=== PATIENT | female | born 2000 | race Caucasian/White ===

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

== ENCOUNTER 2018-07-05 15:47 | Emergency (ER) | payer BC, OTHER ==
--- OUTSIDE RECORDS SUMMARY | 2018-07-05 15:54 | XMS REPORT ---
:2000 External Reference #:[id number] Author Organization [facility] Address [address] [place] [id number] Phone [phone] Care Team Providers Name Role Phone Eddi Koenig M.D. Primary Care Physician Unavailable Payers Type Date Identification Payment Provider Subscriber Numbers Health Maintenance Effective: Policy Number: [facility] [employer] ([facility]) 11/11/2013 [id number] [place] PayID: [id number] [address] [place] [address] Problems Date Description Provider Status Onset: 03/22/2018 Sinai-Danlos syndrome, type 3 Eddi Koenig M.D. Active Note: Document: 03/19/18 - Consult Genetics Onset: 05/26/2014 Vocal cord dysfunction Eddi Koenig M.D. Active Onset: 05/26/2014 Dysmenorrhea Active Onset: 04/06/2015 Allergic rhinitis due to pollen Eddi Koenig M.D. Active Onset: 04/06/2015 Extrinsic asthma without status Eddi Koenig M.D. Active asthmaticus Onset: 06/07/2015 Depressive disorder Eddi Koenig M.D. Active Onset: 11/29/2015 Obsessive-compulsive disorder Eddi Koenig M.D. 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 Active Onset: 08/05/2017 Allergic rhinitis due to animal Active dander Onset: 11/19/2017 Chronic pain syndrome Eddi Koenig M.D. Active Onset: 09/13/2014 Temporomandibular joint disorder Eddi Koenig M.D. Inactive Inactive: 06/07/2015 Onset: 09/13/2014 Backache Eddi Koenig M.D. Inactive Inactive: 06/07/2015 Onset: Neuralgia/neuritis - ankle/foot Inactive Inactive: 06/07/2015 Note: right Family History Date Family Member(s) Problem(s) Comments Onset: (age 45 Years) Father Arthritis Mother Depression Mother Anxiety Mother Allergies Mother Migraine First Brother Bipolar Disorder First Brother Migraine First Brother Concussion (multiple) First Brother Attention Deficit Disorder (ADD) Paternal Grandmother Bipolar Disorder Social History Type Date Description Comments ETOH Use Denies alcohol use Smoking Patient has never smoked Recreational Drug Use Denies Drug Use Smoking No Exposure To Secondhand Smoke Currently Active Has never engaged in sexual activity Allergies, Adverse Reactions, Alerts Date Description Reaction Status Severity Comments 08/18/2014 Amoxicillin Urticaria active Mild to Moderate 08/15/2016 Naproxen syncope active Moderate Medications Medication Date Status Form Strength Qnty SIG Indications Ordering Provider Knee Brace 12/23 Active Misc 1Pair Custom with 10 degree Snedeker, hyperextension M.D. 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 and low back weakness Occupational 11/19 Active Hypermobility D89.40 Eddi Therapy syndrome Levon Koenig Ranitidine 11/19 Active Tablets 150mg 60tab Take 1 Tablet D89.40 s By Mouth Twice Snedeker, A Day M.D. Concerta 12/18 Active Tablets ER 36mg 30tab 1 cap by mouth F90.0 s daily every Snedeker, morning M.D. Venlafaxine 04/10 Active Tablets 50mg 60tab take 1 tablet F32.9 Eddi HCL s by mouth twice Snedeker, a day M.D. Flonase 04/06 Active Suspension 50mcg/Act 47.40 1 intranasal 477.0 Eddi Allergy 0ml puff daily Snedeker, Relief M.D. Epinastine 04/06 Active Solution 0.05% 5ml 1 drop both J30.1 eyes twice a Snedeker, day MDarvin Proair HFA 04/06 Active Aerosol 108(90Bas 8.500 2 puff every 4 J45.20 e) gm hours as Snedeker, mcg/Act needed M.Fidelia Aerochamber 04/06 Active Misc 1unit 1 unit 493.00 [place] s Levon Koenig Alprazolam Active Tablets 0.25mg 30tab 1 tab by mouth F32.9 Eddi s three times a Snedeker, day M.D. F42 Tramadol HCL Active Tablets 50mg Take 1 To 2 Unknown Tablets By Mouth Every 6 Hours Singulair Active Tablets 10mg take 1 tablet by Unknown mouth one time daily Gabapentin 11/19/2017 - Hx Tablets 600mg 60ta tab by mouth G89 [place] 06/22/2018 bs twice a day .4 Levon Koenig Atarax 07/14/2017 - Hx Tablets 25mg 30ta Four Times Daily Unknown 08/13/2017 bs Deltasone 07/14/2017 - Hx Tablets 20mg 9tab Every Day Unknown 07/23/2017 s Hydroxyzine HCL 07/02/2017 - Hx Tablets 25mg 30ta one to two tabs L50 Walter G. 08/01/2017 bs by mouth bid prn .0 Levon Paredes Oxycodone-Aceta 02/15/2017 - Hx Tablets 5-325mg 30ta 1-2 tab by mouth N80 Eddi minophen 07/01/2017 bs every 4 hours as .9 Snedeker, needed; do not M.D. take with acetaminophen N94.6 Concerta 09/21/2016 - Hx Tablets ER 27mg 30tabs 1 tab by mouth F90.0 Eddi 12/18/2016 daily every Snedeker, morning M.D. Concerta 08/15/2016 - Hx Tablets ER 18mg 30tabs 1 tab by mouth F90.0 Bc 09/21/2016 daily every Alcazar, morning M.D. Oxycodone-Aceta 04/18/2016 - Hx Tablets 5-325m 30tabs 1-2 tab by R10.9 Eddi minophen 05/18/2016 g mouth every 4 Snedeker, hours as M.DCarlos Enrique needed; do not take with acetaminophen Venlafaxine HCL 02/22/2016 - Hx Tablets 37.5mg 60tabs 1 tab by mouth F32.9 [place] 04/10/2016 twice a day Levon Koenig Physical 02/22/2016 - Hx Evaluate and F32.9 [place] Therapy 02/27/2016 treat low back Snedcarlor, pain Marine.DCarlos Enrique Lexapro 01/09/2016 - Hx Tablets 10mg 45tabs 1 1/2 tab by F32.9 [place] 02/22/2016 mouth daily Levon Koenig Valacyclovir 12/26/2015 - Hx Tablets 500mg 10tabs 1 tab by mouth G51.0 [place] HCL 12/31/2015 twice a day Levon Koenig Prednisone 12/26/2015 - Hx Tablets 10mg 50tabs 3 tab by mouth G51.0 [place] 01/09/2016 twice a day for Snedeker, 5 days, then 2 M.D. bid for 2 days, then 1 bid for 2 days, then 1/2 bid for 2 days Lexapro 12/21/2015 - Hx Tablets 5mg 60tabs 1 tab by mouth F42 [place] 01/09/2016 daily SnLevno cox Sertraline HCL 11/29/2015 - Hx Tablets 25mg 90tabs 1 tab by mouth F42 [place] 12/21/2015 daily Levon Koenig Drysol 11/12/2015 - Hx Solution 20% 35ml Apply as R61 [place] 01/02/2016 directed Tafa Snedella, daily for 1 M.D. week then as needed to control sweating Cefdinir 10/17/2015 - Hx Capsules 300mg 20caps 1 cap by mouth J01.10 [place] 11/11/2015 twice a day Levon Koenig Fluoxetine HCL 04/11/2015 - Hx Tablets 20mg 30tabs Take 1 Tablet [place] 01/31/2016 By Mouth Every Snedeker, Day M.Fidelia Crutches-Alumin 12/21/2014 - Hx Mis 1units 845.19 Eddi um 04/05/2015 Levon Koenig Post-Op 12/10/2014 - Hx Misc 1units one right 719.47 Eddi Shoe/Soft 04/05/2015 post-op shoe, Sncesarekeyancy, TOP/Women/Mediu wear as M.D. m directed Fluoxetine HCL 08/27/2014 - Hx Capsules 20mg 30caps 1 cap by mouth Eddi 04/11/2015 every day Levon Koenig Klonopin 08/18/2014 - Hx Tablets 0.5mg 30tabs Take 1 tablet 300.00 Angela 08/23/2014 by mouth 2 Uphoff, times per day M.D. for panic disorder Emla 08/18/2014 - Hx Cream 2.5-2. 5gm Apply as 300.00 Angela 04/05/2015 5% directed 30 Uphoff, minutes prior M.D. to venipuncture Divalproex 08/06/2014 - Hx Tablets DR 250mg 60tabs 1 tab by mouth Eddi Sodium 04/05/2015 twice a day Levon Koenig Daysee 05/26/2014 - Hx Tablets 0.15-0 28tabs 1 tab by mouth [place] 04/05/2015 .03&0. every day Liberty 01mg M.DCarlos Enrique Fluoxetine HCL 04/09/2014 - Hx Capsules 10mg 2 tab by mouth Unknown 08/27/2014 every day Fexofenadine 03/30/2014 - Hx Tablets 180mg Every Day Unknown HCL 04/06/2015 Clonidine HCL - Hx Tablets 0.1mg 30tabs 1 tab by mouth Unknown 10/17/2015 daily at bedtime Loratadine-Pseu - Hx Tablets ER 10-240 477.0 Unknown doephedrine ER 11/11/2015 24HR mg Camrese - Hx Tablets 0.15-0 Take 1 Tablet Unknown 06/06/2015 .03&0. By Mouth Every 01mg Day Doxycycline - Hx Capsules 100mg Take 2 Capsules Unknown Hyclate 06/06/2015 By Mouth Every Day Gabapentin - Hx Capsules 300mg Unknown 06/06/2015 Divalproex - Hx Tablets DR 250mg Take 1 Tablet Unknown Sodium 06/06/2015 By Mouth Twice A Day Ocella - Hx Tablets 3-0.03 Unknown 06/06/2015 mg Latuda - Hx Tablets 20mg Take 1 Tablet Unknown 06/06/2015 By Mouth For One Week Then Take 2 Tablets By Mouth Every Fluconazole - Hx Tablets 150mg Unknown 06/06/2015 Hydroxyzine - Hx Capsules 25mg Unknown Pamoate 06/06/2015 Clonazepam - Hx Tablets 0.5mg Take 1 Tablet Unknown 06/06/2015 By Mouth Twice A Day For Panic Disorder Divalproex - Hx Tablets ER 250mg Take 1 Tablet Unknown Sodium ER 06/06/2015 24HR By Mouth Twice A Day Motrin Ib - Hx Tablets 200mg 3 tabs at 8:30 Unknown 03/05/2016 am today Baclofen - Hx Tablets 5mg 1 tab bid Unknown 02/14/2017 Norethindrone - Hx Tablets 10mg 1 by mouth Unknown 04/07/2017 every day Tizanidine HCL - Hx Capsules 4mg 1 tab tid N80.9 Unknown 06/07/2017 Gabapentin - Hx Capsules 200mg 1 capsule tid Unknown 07/01/2017 Celecoxib - Hx Capsules 200mg 1 capsule tid Reta 07/01/2017 Allen GARDUNO Sulfamethoxazol - Hx Tablets 800-16 1 tab bid x 3 Reta e/Trimethoprim 08/22/2017 0mg days Allen GARDUNO DS Medications Administered in Office Medication Date Status Form Strength Qnty SIG Indications Ordering Provider Immunization 04/10/ Administered Injection Eddi Adminstration 2+ 2015 Jb Koenig Or Levon Combination Immunization 04/10/ Administered Injection Eddi Administration 2015 Jb Koenig Or Levon Combination TB Intradermal 04/10/ Administered Injection Eddi Test 2015 Levon Koenig Immunization 08/12/ Administered Injection Eddi Administration 2014 Jb Koenig Or M.D. Combination Immunization Injection Eddi Administration 2014 Jb Koenig Or Levon Combination Immunizations CPT Code Status Date Vaccine Lot # [id number] Given 04/10/2016 Meningococcal Conjugate Vaccine (Menveo) [id number] 95868 Given 04/10/2016 Meningococcal B Vaccine [id number] 15222 Given 08/12/2015 Flumist [id number] 96833 Given 09/13/2014 Flumist [id number] 59161 Given 08/26/2013 Influenza Virus Vaccine, Split Virus, 6-35 Months Age Intramuscul 41450 Given 09/17/2012 Influenza Virus Vaccine, Split Virus, 6-35 Months Age Intramuscul 04814 Given 04/03/2012 Hepatitis A Pediatric 22280 Given 02/22/2012 Gardasil 18524 Given 09/27/2011 Influenza Virus Vaccine Intranasal 37528 Given 09/07/2011 Gardasil 42549 Given 07/09/2011 Gardasil 37910 Given 07/09/2011 Varicella (Chicken Pox) Vaccine 65848 Given 07/09/2011 Hepatitis A Pediatric 81560 Given 09/15/2010 Influenza Virus Vaccine Intranasal 77331 Given 03/29/2010 Menactra 51641 Given 03/29/2010 Tdap 55378 Given 09/28/2009 Influenza Virus Vaccine, Split Virus, 6-35 Months Age Intramuscul 84704 Given 09/28/2009 Influenza Virus Vaccine, Pandemic Formulation, Live, Intranasal 87436 Given 09/09/2008 Influenza Virus Vaccine Intranasal 78782 Given 10/07/2006 Influenza Virus Vaccine, Split Virus, 6-35 Months Age Intramuscul 20907 Given 05/26/2004 Varicella (Chicken Pox) Vaccine 46852 Given 05/26/2004 Polio Injectable 37105 Given 05/26/2004 MMR Vaccine, Live, For Subcutaneous Use 17688 Given 05/26/2004 DTaP Vaccine Younger Than 7 84158 Given 01/13/2002 Prevnar 13 17626 Given 03/27/2000 MMR Vaccine, Live, For Subcutaneous Use 27319 Given 03/27/2000 DTaP Vaccine Younger Than 7 93081 Given 12/27/1999 Polio Injectable 97540 Given 12/27/1999 Hib Vaccine 73840 Given 09/19/1999 Hepatitis B Vaccine Pediatric/Adolescent 22212 Given 06/07/1999 DTaP Vaccine Younger Than 7 60029 Given 06/07/1999 Hib Vaccine 73261 Given 04/05/1999 Polio Injectable 52241 Given 04/05/1999 DTaP Vaccine Younger Than 7 79548 Given 04/05/1999 Rotateq 87845 Given 04/05/1999 Hib Vaccine 21708 Given 02/03/1999 Hepatitis B Vaccine Pediatric/Adolescent 90674 Given 02/03/1999 Polio Injectable 44683 Given 02/03/1999 DTaP Vaccine Younger Than 7 60266 Given 02/03/1999 Rotateq 52280 Given 02/03/1999 Hib Vaccine 17851 Given 1998 Hepatitis B Vaccine Pediatric/Adolescent 46475 Refused 09/21/2016 Meningococcal B Vaccine Vital Signs Date Vital Result Comment 06/23/2018 Body Temperature 98.4 F Heart Rate 90 /min Respiratory Rate 12 /min BP Systolic 123 mmHg BP Diastolic 83 mmHg Weight 140.25 lb weighed with braces total 6 lbs Weight in kg's 63.617 Height 64 inches 5'4" BMI (Body Mass Index) 24.1 kg/m2 Body Mass Index Percentile 73 % Height Percentile 45 % Weight Percentile 70th 11/22/2017 Body Temperature 99.1 F Heart Rate 91 /min Respiratory Rate 14 /min BP Systolic 119 mmHg BP Diastolic 74 mmHg Weight 140.00 lb Weight in kg's 63.503 Height 64 inches BMI (Body Mass Index) 24.0 kg/m2 O2 % BldC Oximetry 99 % 11/19/2017 Body Temperature 98.4 F Heart Rate 105 /min Respiratory Rate 12 /min BP Systolic 117 mmHg BP Diastolic 75 mmHg Blood Pressure Percentile 0 % Weight 134.38 lb Weight in kg's 60.953 Height 64.25 inches 5'4.25" BMI (Body Mass Index) 22.9 kg/m2 Body Mass Index Percentile 65 % Height Percentile 50 % Weight Percentile 64th 08/20/2017 Body Temperature 99.1 F Heart Rate 104 /min Respiratory Rate 16 /min BP Systolic 132 mmHg BP Diastolic 78 mmHg Blood Pressure Percentile 97 % Weight 135.50 lb Weight in kg's 61.463 Height 64.25 inches 5'4.25" BMI (Body Mass Index) 23.1 kg/m2 Body Mass Index Percentile 67 % Height Percentile 50 % Weight Percentile 67th 07/14/2017 Body Temperature 99.2 F Heart Rate 106 /min Respiratory Rate 18 /min BP Systolic 132 mmHg BP Diastolic 80 mmHg Weight 135.00 lb Weight in kg's 61.235 Height 64 inches BMI (Body Mass Index) 23.1 kg/m2 O2 % BldC Oximetry 100 % 07/02/2017 Body Temperature 98.3 F Heart Rate 84 /min Respiratory Rate 12 /min BP Systolic 138 mmHg BP Diastolic 91 mmHg BP Systolic Recheck 140 mmHg BP Diastolic Recheck 82 mmHg Blood Pressure Percentile 0 % Weight 135.19 lb Weight in kg's 61.321 Weight Percentile 67th 06/07/2017 Body Temperature 99.0 F Heart Rate 80 /min Respiratory Rate 14 /min BP Systolic 128 mmHg BP Diastolic 77 mmHg Blood Pressure Percentile 94 % Weight 135.00 lb Weight in kg's 61.236 Height 64.4 inches 5'4.40" BMI (Body Mass Index) 22.9 kg/m2 Body Mass Index Percentile 66 % Height Percentile 52 % Weight Percentile 6702/15/2017 Body Temperature 98.8 F Heart Rate 98 /min Respiratory Rate 12 /min BP Systolic 117 mmHg BP Diastolic 73 mmHg Blood Pressure Percentile 70 % Weight 134.88 lb Weight in kg's 61.179 Height 64.25 inches 5'4.25" BMI (Body Mass Index) 23.0 kg/m2 Body Mass Index Percentile 68 % Height Percentile 50 % Weight Percentile 6812/18/2016 Body Temperature 99.6 F Heart Rate 91 /min Respiratory Rate 14 /min BP Systolic 128 mmHg BP Diastolic 78 mmHg Blood Pressure Percentile 94 % Weight 136.56 lb Weight in kg's 61.945 Height 64.2 inches 5'4.20" BMI (Body Mass Index) 23.3 kg/m2 Body Mass Index Percentile 71 % Height Percentile 50 % Weight Percentile 7109/21/2016 Body Temperature 98.2 F Heart Rate 76 /min Respiratory Rate 16 /min BP Systolic 118 mmHg BP Diastolic 62 mmHg Blood Pressure Percentile 72 % Weight 137.00 lb Weight in kg's 62.143 Height 64.50 inches 5'4.50" BMI (Body Mass Index) 23.2 kg/m2 Body Mass Index Percentile 71 % Height Percentile 55 % Weight Percentile 72nd 08/15/2016 Body Temperature 98.6 F Heart Rate 92 /min Respiratory Rate 12 /min BP Systolic 124 mmHg BP Diastolic 78 mmHg Blood Pressure Percentile 87 % Weight 136.88 lb Weight in kg's 62.087 Height 64.5 inches 5'4.50" BMI (Body Mass Index) 23.1 kg/m2 Body Mass Index Percentile 71 % Height Percentile 55 % Weight Percentile 05/18/2016 Body Temperature 98.3 F Heart Rate 79 /min Respiratory Rate 12 /min BP Systolic 116 mmHg BP Diastolic 73 mmHg Blood Pressure Percentile 0 % Weight 133.56 lb Weight in kg's 60.584 Height 64.5 inches 5'4.50" BMI (Body Mass Index) 22.6 kg/m2 Body Mass Index Percentile 67 % Height Percentile 55 % Weight Percentile 04/25/2016 Body Temperature 98.4 F Heart Rate 71 /min Respiratory Rate 12 /min BP Systolic 102 mmHg BP Diastolic 68 mmHg Blood Pressure Percentile 16 % Weight 132.56 lb Weight in kg's 60.130 Height 64.5 inches 5'4.50" BMI (Body Mass Index) 22.4 kg/m2 Body Mass Index Percentile 66 % Height Percentile 55 % Weight Percentile 04/18/2016 Body Temperature 99.0 F Heart Rate 76 /min Respiratory Rate 12 /min BP Systolic 118 mmHg BP Diastolic 62 mmHg Blood Pressure Percentile 0 % Weight 133.25 lb Weight in kg's 60.442 Weight Percentile 04/10/2016 Body Temperature 98.4 F Heart Rate 85 /min Respiratory Rate 12 /min BP Systolic 115 mmHg BP Diastolic 80 mmHg Blood Pressure Percentile 0 % Weight 131.25 lb Weight in kg's 59.535 Height 64.5 inches 5'4.50" BMI (Body Mass Index) 22.2 kg/m2 Body Mass Index Percentile 64 % Height Percentile 55 % Weight Percentile 03/06/2016 Body Temperature 99.5 F Heart Rate 82 /min Respiratory Rate 18 /min BP Systolic 108 mmHg BP Diastolic 64 mmHg Blood Pressure Percentile 34 % Weight 132.38 lb Weight in kg's 60.045 Height 64.5 inches 5'4.50" BMI (Body Mass Index) 22.4 kg/m2 Body Mass Index Percentile 66 % Height Percentile 55 % Weight Percentile 03/02/2016 Body Temperature 99.5 F Heart Rate 90 /min Respiratory Rate 12 /min BP Systolic 105 mmHg BP Diastolic 73 mmHg Blood Pressure Percentile 25 % Weight 128.56 lb Weight in kg's 58.316 Height 64.5 inches 5'4.50" done 2x BMI (Body Mass Index) 21.7 kg/m2 Body Mass Index Percentile 59 % Height Percentile 55 % Weight Percentile 62nd 02/22/2016 Body Temperature 98.4 F Heart Rate 73 /min Respiratory Rate 12 /min BP Systolic 104 mmHg BP Diastolic 65 mmHg Blood Pressure Percentile 22 % Weight 130.06 lb Weight in kg's 58.996 Height 64.5 inches 5'4.50" done 2x BMI (Body Mass Index) 22.0 kg/m2 Body Mass Index Percentile 62 % Height Percentile 55 % Weight Percentile 65th 01/31/2016 Body Temperature 98.1 F Heart Rate 72 /min Respiratory Rate 12 /min BP Systolic 112 mmHg BP Diastolic 60 mmHg Blood Pressure Percentile 50 % Weight 128.00 lb Weight in kg's 58.061 Height 64.25 inches 5'4.25" done 2x BMI (Body Mass Index) 21.8 kg/m2 Body Mass Index Percentile 60 % Height Percentile 52 % Weight Percentile 62nd 01/03/2016 Body Temperature 98.3 F Heart Rate 86 /min Respiratory Rate 12 /min BP Systolic 112 mmHg BP Diastolic 74 mmHg Blood Pressure Percentile 49 % Weight 124.25 lb Weight in kg's 56.360 Height 64.5 inches 5'4.50" BMI (Body Mass Index) 21.0 kg/m2 Body Mass Index Percentile 51 % Height Percentile 56 % Weight Percentile 55th 12/26/2015 Body Temperature 98.2 F Heart Rate 64 /min Respiratory Rate 14 /min BP Systolic 108 mmHg BP Diastolic 64 mmHg Blood Pressure Percentile 0 % Weight 120.50 lb Weight in kg's 54.659 Weight Percentile 48th 12/21/2015 Body Temperature 98.6 F Heart Rate 66 /min Respiratory Rate 14 /min BP Systolic 95 mmHg BP Diastolic 64 mmHg Blood Pressure Percentile 5 % Weight 121.38 lb Weight in kg's 55.056 Height 64.4 inches 5'4.40" BMI (Body Mass Index) 20.6 kg/m2 Body Mass Index Percentile 46 % Height Percentile 54 % Weight Percentile 50th 11/29/2015 Body Temperature 98.2 F Heart Rate 83 /min Respiratory Rate 12 /min BP Systolic 124 mmHg BP Diastolic 76 mmHg Blood Pressure Percentile 87 % Weight 121.50 lb Weight in kg's 55.112 Height 64.25 inches 5'4.25" BMI (Body Mass Index) 20.7 kg/m2 Body Mass Index Percentile 48 % Height Percentile 52 % Weight Percentile 50th 11/12/2015 Body Temperature 98.6 F Heart Rate 88 /min Respiratory Rate 16 /min BP Systolic 108 mmHg BP Diastolic 64 mmHg Blood Pressure Percentile 0 % Weight 120.50 lb Weight in kg's 54.659 Weight Percentile 48th 10/17/2015 Body Temperature 98.5 F Heart Rate 112 /min Respiratory Rate 20 /min BP Systolic 110 mmHg BP Diastolic 62 mmHg Blood Pressure Percentile 0 % Weight 118.00 lb Weight in kg's 53.525 Weight Percentile 44th 10/02/2015 Body Temperature 98.6 F Heart Rate 84 /min Respiratory Rate 16 /min BP Systolic 115 mmHg BP Diastolic 69 mmHg Weight 122.00 lb Weight in kg's 55.338 O2 % BldC Oximetry 99 % 08/12/2015 Body Temperature 98.0 F Heart Rate 87 /min Respiratory Rate 12 /min BP Systolic 111 mmHg BP Diastolic 76 mmHg Blood Pressure Percentile 0 % Weight 126.88 lb Weight in kg's 57.550 Height 63.75 inches 5'3.75" BMI (Body Mass Index) 21.9 kg/m2 Body Mass Index Percentile 64 % Height Percentile 45 % Weight Percentile 62nd 06/07/2015 Body Temperature 99.0 F Heart Rate 78 /min Respiratory Rate 12 /min BP Systolic 106 mmHg BP Diastolic 74 mmHg Blood Pressure Percentile 30 % Weight 124.69 lb Weight in kg's 56.558 Height 63.75 inches 5'3.75" BMI (Body Mass Index) 21.6 kg/m2 Body Mass Index Percentile 61 % Height Percentile 45 % Weight Percentile 59th 06/06/2015 Body Temperature 98.9 F Heart Rate 64 /min Respiratory Rate 20 /min BP Systolic 118 mmHg BP Diastolic 60 mmHg Blood Pressure Percentile 0 % Weight 123.25 lb Weight in kg's 55.906 Weight Percentile 56th 05/16/2015 Body Temperature 98.8 F Heart Rate 68 /min Respiratory Rate 16 /min BP Systolic 104 mmHg BP Diastolic 68 mmHg Blood Pressure Percentile 0 % Weight 124.50 lb Weight in kg's 56.473 Weight Percentile 59th 04/06/2015 Body Temperature 98.2 F Heart Rate 66 /min Respiratory Rate 12 /min BP Systolic 103 mmHg BP Diastolic 69 mmHg Blood Pressure Percentile 20 % Weight 123.75 lb Weight in kg's 56.133 Height 64.25 inches 5'4.25" BMI (Body Mass Index) 21.1 kg/m2 Body Mass Index Percentile 56 % Height Percentile 53 % Weight Percentile 58th 12/21/2014 Body Temperature 97.4 F Heart Rate 80 /min Respiratory Rate 12 /min BP Systolic 118 mmHg BP Diastolic 62 mmHg Blood Pressure Percentile 0 % Weight 125.25 lb Weight in kg's 56.813 Height 63.1 inches 5'3.10" BMI (Body Mass Index) 22.1 kg/m2 Body Mass Index Percentile 69 % Height Percentile 36 % Weight Percentile 62nd 12/10/2014 Body Temperature 99.0 F Heart Rate 80 /min Respiratory Rate 14 /min BP Systolic 104 mmHg BP Diastolic 68 mmHg Blood Pressure Percentile 26 % Weight 124.25 lb Weight in kg's 56.360 Height 63.1 inches 5'3.10" BMI (Body Mass Index) 21.9 kg/m2 Body Mass Index Percentile 67 % Height Percentile 36 % Weight Percentile 60th 12/02/2014 Body Temperature 98.8 F Heart Rate 86 /min Respiratory Rate 12 /min BP Systolic 123 mmHg BP Diastolic 67 mmHg Blood Pressure Percentile 0 % Weight 124.25 lb Weight in kg's 56.360 Weight Percentile 60th 11/18/2014 Body Temperature 98.0 F Heart Rate 90 /min Respiratory Rate 14 /min BP Systolic 123 mmHg BP Diastolic 74 mmHg Blood Pressure Percentile 0 % Weight 128.25 lb Weight in kg's 58.174 O2 % BldC Oximetry 99 % Weight Percentile 67th 09/13/2014 Body Temperature 98.7 F Heart Rate 64 /min Respiratory Rate 18 /min BP Systolic 112 mmHg BP Diastolic 68 mmHg Blood Pressure Percentile 52 % Weight 131.25 lb Weight in kg's 59.535 Height 63.9 inches 5'3.90" BMI (Body Mass Index) 22.6 kg/m2 Body Mass Index Percentile 74 % Height Percentile 49 % Weight Percentile 72nd 08/23/2014 Body Temperature 98.9 F Heart Rate 60 /min Respiratory Rate 18 /min BP Systolic 110 mmHg BP Diastolic 70 mmHg Blood Pressure Percentile 46 % Weight 129.38 lb Weight in kg's 58.684 Height 63.6 inches 5'3.60" BMI (Body Mass Index) 22.5 kg/m2 Body Mass Index Percentile 73 % Height Percentile 45 % Weight Percentile 70th 08/20/2014 Body Temperature 98.3 F Heart Rate 62 /min Respiratory Rate 16 /min BP Systolic 106 mmHg supine. BP Diastolic 60 mmHg supine. Blood Pressure Percentile 0 % Weight 129.38 lb Weight in kg's 58.684 Weight Percentile 70th 08/18/2014 Body Temperature 99.8 F Heart Rate 86 /min Respiratory Rate 12 /min BP Systolic 116 mmHg BP Diastolic 70 mmHg Blood Pressure Percentile 0 % Weight 128.38 lb Weight in kg's 58.231 Weight Percentile 68th 05/26/2014 Heart Rate 66 /min Respiratory Rate 14 /min BP Systolic 118 mmHg BP Diastolic 74 mmHg Weight 123.00 lb Height 63.5 inches 04/09/2014 Heart Rate 83 /min Respiratory Rate 12 /min BP Systolic 119 mmHg BP Diastolic 74 mmHg Weight 118.81 lb 03/30/2014 Heart Rate 83 /min Respiratory Rate 14 /min BP Systolic 113 mmHg BP Diastolic 69 mmHg Weight 119.00 lb 03/23/2014 Heart Rate 80 /min Respiratory Rate 14 /min BP Systolic 108 mmHg BP Diastolic 66 mmHg Weight 116.00 lb 03/16/2014 Heart Rate 76 /min Respiratory Rate 12 /min BP Systolic 103 mmHg BP Diastolic 63 mmHg Weight 116.81 lb 03/11/2014 Body Temperature 99.6 F Heart Rate 80 /min Respiratory Rate 16 /min BP Systolic 100 mmHg BP Diastolic 62 mmHg Weight 117.00 lb 02/16/2014 Heart Rate 80 /min Respiratory Rate 12 /min BP Systolic 113 mmHg BP Diastolic 74 mmHg Weight 117.81 lb 01/11/2014 Heart Rate 69 /min Respiratory Rate 12 /min BP Systolic 110 mmHg BP Diastolic 74 mmHg Weight 113.50 lb 04/16/2013 Heart Rate 68 /min Respiratory Rate 18 /min BP Systolic 110 mmHg BP Diastolic 70 mmHg Weight 109.75 lb Height 62.9 inches 04/03/2012 Heart Rate 84 /min Respiratory Rate 18 /min BP Systolic 110 mmHg BP Diastolic 64 mmHg Weight 102.81 lb Height 61.8 inches 03/02/2011 Heart Rate 71 /min Respiratory Rate 12 /min BP Systolic 105 mmHg BP Diastolic 73 mmHg Weight 85.38 lb Height 59 inches 02/16/2011 Heart Rate 84 /min Respiratory Rate 12 /min BP Systolic 110 mmHg BP Diastolic 80 mmHg Weight 85.31 lb 06/05/2010 Heart Rate 70 /min Respiratory Rate 12 /min BP Systolic 98 mmHg BP Diastolic 78 mmHg Weight 76.75 lb 03/01/2010 Heart Rate 84 /min Respiratory Rate 16 /min BP Systolic 116 mmHg BP Diastolic 60 mmHg Weight 74.50 lb Height 56 inches 09/16/2009 Heart Rate 108 /min Respiratory Rate 18 /min BP Systolic 100 mmHg BP Diastolic 68 mmHg Weight 69.25 lb 01/26/2009 Heart Rate 92 /min Respiratory Rate 18 /min BP Systolic 96 mmHg BP Diastolic 62 mmHg Weight 67.00 lb Height 53.75 inches 12/20/2008 Heart Rate 72 /min Respiratory Rate 16 /min BP Systolic 86 mmHg BP Diastolic 60 mmHg Weight 64.75 lb 11/03/2008 Heart Rate 66 /min Respiratory Rate 18 /min BP Systolic 98 mmHg BP Diastolic 70 mmHg Weight 65.00 lb 10/18/2008 Heart Rate 64 /min Respiratory Rate 12 /min BP Systolic 92 mmHg BP Diastolic 58 mmHg Weight 65.00 lb 10/14/2008 Heart Rate 80 /min Respiratory Rate 20 /min BP Systolic 90 mmHg BP Diastolic 60 mmHg Weight 65.50 lb 09/24/2008 Weight 65.50 lb 08/27/2008 Heart Rate 80 /min Respiratory Rate 16 /min BP Systolic 116 mmHg BP Diastolic 64 mmHg Weight 64.25 lb 12/03/2007 Heart Rate 100 /min Respiratory Rate 20 /min BP Systolic 82 mmHg BP Diastolic 64 mmHg Weight 59.00 lb Height 52 inches 11/24/2007 Heart Rate 84 /min Respiratory Rate 16 /min BP Systolic 86 mmHg BP Diastolic 52 mmHg Weight 60.00 lb 10/27/2007 Heart Rate 84 /min Respiratory Rate 20 /min BP Systolic 90 mmHg BP Diastolic 52 mmHg Weight 59.00 lb 02/05/2007 Heart Rate 82 /min Respiratory Rate 18 /min BP Systolic 100 mmHg BP Diastolic 56 mmHg Weight 53.00 lb 12/10/2006 Heart Rate 80 /min Respiratory Rate 20 /min BP Systolic 92 mmHg BP Diastolic 62 mmHg Weight 51.00 lb 12/02/2006 Heart Rate 84 /min Respiratory Rate 16 /min BP Systolic 96 mmHg BP Diastolic 60 mmHg Weight 52.25 lb Height 49 inches Results Test Date Test Result H/L Range Note Laboratory test finding 11/21/2017 Tryptase 2.9 ng/mL <11.5 1 Laboratory test finding 04/10/2016 PPD Intermediate negative Laboratory test finding 03/02/2016 .Quick Strep Screen neg .Culture Throat neg Herpes Simplex PCR 12/26/2015 Herpes Source ORAL HSV 1 PCR Negative Negative HSV 2 PCR Negative Negative 2 CBC Auto Diff 11/09/2015 White Blood Count 5.1 10^3/uL 3.5-10.8 Red Blood Count 4.86 10^6/uL 4.0-5.4 Hemoglobin 13.9 g/dL 12.0-16.0 Hematocrit 41 % 35-47 Mean Corpuscular Volume 85 fL 80-97 Mean Corpuscular Hemoglobin 29 pg 27-31 Mean Corpuscular HGB Conc 34 g/dL 31-36 Red Cell Distribution Width 12 % 10.5-15 Platelet Count 234 10^3/uL 150-450 Mean Platelet Volume 9 um3 7.4-10.4 Abs Neutrophils 2.5 10^3/uL 1.5-7.7 Abs Lymphocytes 2.1 10^3/uL 1.0-4.8 Abs Monocytes 0.4 10^3/uL 0-0.8 Abs Eosinophils 0 10^3/uL 0-0.6 Abs Basophils 0.1 10^3/uL 0-0.2 Abs Nucleated RBC 0 10^3/uL Granulocyte % 49.1 % 38-83 Lymphocyte % 40.8 % 25-47 Monocyte % 7.3 % 1-9 Eosinophil % 0.9 % 0-6 Basophil % 1.9 % 0-2 Nucleated Red Blood Cells % 0.1 Comp Metabolic Panel 11/09/2015 Sodium 137 mmol/L 133-145 Potassium 4.2 mmol/L 3.5-5.0 Chloride 102 mmol/L 101-111 Co2 Carbon Dioxide 25 mmol/L 22-32 Anion Gap 10 mmol/L 2-11 Glucose 90 mg/dL 70-100 Blood Urea Nitrogen 9 mg/dL 6-24 Creatinine 0.60 mg/dL 0.51-0.95 BUN/Creatinine Ratio 15.0 8-20 Calcium 9.8 mg/dL 8.6-10.3 Total Protein 7.0 g/dL 6.4-8.9 Albumin 4.6 g/dL 3.2-5.2 Globulin 2.4 g/dL 2-4 Albumin/Globulin Ratio 1.9 1-3 Total Bilirubin 0.60 mg/dL 0.2-1.0 Alkaline Phosphatase 91 U/L 34-104 Alt 29 U/L 7-52 Ast 25 U/L 13-39 Laboratory test finding 11/09/2015 Ceruloplasmin 19.8 mg/dL 3 Copper 0.96 g/mL 0.75-1.45 4 Laboratory test finding 10/02/2015 Rapid Strep Molecular Negative Negative 5 Throat Beta Strep Culture SEE RESULT BELOW 6 Laboratory test finding 10/02/2015 Rapid Strep A SEE RESULT BELOW 7 .Cholesterol Screening 06/07/2015 Cholesterol Total Mass/Vol 138 HDL Cholesterol Mass/Vol 47 Triglycerides Ser/Plas Mass/VL 137 LDL Cholesterol Mass/Vol 63 Non-HDL Cholesterol QN Ser/PLS 91 LDL/HDL Ratio 1.4 .CBC W/Auto Differential 06/07/2015 White Blood Count Ser Auto CNT 7.7 Absolute Lymphocytes 2.5 Absolute Monocytes 0.7 Absolute Neutrophils Auto CNT 4.6 Lymph% 32.1 [place]% Auto Count BLD 8.8 Neutrophil % 59.1 RBC Red Blood Count 4.91 Hemoglobin Blood 14.7 Hematocrit 42.5 MCV (Corpuscular Volume) 86.5 MCH (Corpuscular Hemoglobin) 29.9 MCHC (Corpuscular Hemog Conc) 34.6 RDW 12.3 Platelet Count Blood Auto CNT 230. MPV 7.9 Laboratory test finding 04/06/2015 Oximetry 98 Laboratory test finding 03/16/2014 Granulocytes # 4.2 1.5-8.0 Granulocytes (%) 55.4 38.0-83.0 Hematocrit 40.4 36.0-46.0 Hemoglobin 13.8 12.0-16.0 Lymphocytes # 2.7 1.2-5.2 Lymphocytes % 35.9 20.0-45.0 Mean Corpuscular Hemoglobin 29.7 26.0-34.0 Mean Corpuscular Hemoglobin Concent 34.2 31.0-37.0 Mean Platelet Volume 8.2 7.4-10.4 Monocytes # 0.7 0.0-0.8 Monocytes % 8.7 1.0-9.0 Platelet Count 224 x10.3/ul 150-350 Poc Mean Corpuscular Volume 87.1 78.0-102.0 Red Blood Count 4.64 3.90-5.10 Red Cell Distribution Width 12.1 10.5-15.0 White Blood Count 7.6 4.5-13.5 Laboratory test finding 04/16/2013 Granulocytes # 8.1 High 1.5-8.0 Granulocytes (%) 67.8 38.0-83.0 Hematocrit 43.4 36.0-46.0 Hemoglobin 14.5 12.0-16.0 Lymphocytes # 3.0 1.2-5.2 Lymphocytes % 25.1 20.0-45.0 Mean Corpuscular Hemoglobin 29.3 26.0-34.0 Mean Corpuscular Hemoglobin Concent 33.4 31.0-37.0 Mean Platelet Volume 7.9 7.4-10.4 Monocytes # 0.8 0.0-0.8 Monocytes % 7.1 1.0-9.0 Platelet Count 272 x10.3/ul 150-350 Poc Mean Corpuscular Volume 87.6 78.0-102.0 Red Blood Count 4.95 3.90-5.10 Red Cell Distribution Width 11.7 10.5-15.0 White Blood Count 11.9 4.5-13.5 Laboratory test finding 10/27/2007 Granulocytes # 2.6 1.5-8.0 Granulocytes (%) 36.2 20.0-40.0 Hematocrit 37.8 34.0-40.0 Hemoglobin 12.4 11.5-15.5 Lymphocytes # 4.3 1.5-7.0 Lymphocytes % 59.0 High 40.0-55.0 Mean Corpuscular Hemoglobin 27.8 25.0-31.0 Mean Corpuscular Hemoglobin Concent 32.9 31.0-37.0 Mean Platelet Volume 7.1 Low 7.4-10.4 Monocytes # 0.4 0.2-2.0 Monocytes % 4.8 0.0-13.0 Platelet Count 269. 150-350 Poc Mean Corpuscular Volume 84.5 75.0-87.0 Red Blood Count 4.48 3.80-4.90 Red Cell Distribution Width 12.1 10.5-15.0 White Blood Count 7.3 4.5-13.5 1 Test Performed by: [facility] - [address] [address] 2 ADDITIONAL INFORMATION Analyte Specific Reagent: This test was developed and its performance characteristics determined by [facility]. It has not been cleared or approved by the U.S. Food and Drug Administration. Test Performed by: [address] [address] Custom Bookbinder: Vasquez Woodson II, M.D., Ph.D. 3 REFERENCE VALUE 14.0 - 41.0 Test Performed by: [place] [address] Custom Bookbinder: Vasquez Woodson II, M.D., Ph.D. 4 Test Performed by: [place] [address] Custom Bookbinder: Vasquez Woodson II, M.D., Ph.D. 5 Associate Professor Of Music: [id number] [employer] The rubberizing mechanic and regulatory agencies both recommend that a throat culture for beta strep be performed if a Rapid Group A Strep assay yields a negative result. Therefore a culture will be automatically performed on all negative samples. 6 SEE RESULT BELOW Name: LIGIA CHING : [address]: Conchita Shin DO Acct: [id number] Unit: [id number] AGE: 14 Location: [facility] Re10/02/15 SEX: F Status: DEP ER SPEC: [id number] KEMAR: 10/02/15-9422 [facility] DR: Conchita Shin DO REQ: [id number] RECD: 10/02/151009 STATUS: ZELALEM KATHLEEN DR: Eddi Koenig MD _ SOURCE: THROAT SPDESC: ORDERED: Throat Beta Str Procedure Result Reported Site Throat Beta Strep Culture Final 10/04/15823 ML Negative For Group A Beta Streptococcus * ML - MAIN LAB ([facility]) . END OF REPORT * ML=Testing performed at Main Lab DEPARTMENT OF PATHOLOGY, [address] [place] [address] Raheem Goins M.D. Director [facility] # [id number] 7 SEE RESULT BELOW Name: LIGIA CHING : [address]: Conchita Shin DO Acct: [id number] Unit: [id number] AGE: 14 Location: [facility] Re10/02/15 SEX: F Status: REG ER SPEC: [id number] KEMAR: 10/02/15-[address]: Conchita Shin DO REQ: [id number] RECD: 10/02/15 STATUS: COMP HEVER DR: Eddi Koenig MD _ SOURCE: THROAT SPDESC: ORDERED: Strep A Request Procedure Result Verified Site Rapid Strep A Request Final 10/02/15- 1455 ML Specimen received for Rapid Strep A Molecular testing * ML - MAIN LAB ([facility]) . END OF REPORT * ML=Testing performed at Main Lab DEPARTMENT OF PATHOLOGY, [address] [place] [address] Raheem Goins M.D. Director [facility] # [id number] Procedures Date CPT Code Description Status 08/20/2017 37329 Vision Screening Completed 08/20/2017 02879 Admin Patient Focused Health Risk Assessment Instrument Completed 08/20/2017 46427 Brief Emotional/Behav Assessment W/ Scoring Doc Per Completed Standard Inst 08/20/2017 09194 Brief Emotional/Behav Assessment W/ Scoring Doc Per Completed Standard Inst 08/20/2017 26745 Hearing Screen, Pure Tone, Air Completed 08/15/2016 79516 Vision Screening Completed 08/15/2016 52026 Hearing Screen, Pure Tone, Air Completed 06/07/2015 34134 Vision Screening Completed 06/07/2015 78495 Hearing Screen, Pure Tone, Air Completed 06/07/2015 61293 Collection Of Capillary Blood Specimen Completed 09/15/2014 22971 Developmental Testing Limited Completed 09/14/2014 72992 Developmental Testing Limited Completed 08/19/2014 35826 Developmental Testing Limited Completed Encounters Type Date Location Provider CPT E/M Dx Office Visit 06/23/2018 8:[place] [address] H92.02 J34.89 Office Visit 11/19/2017 11:30a Sal Koenig M.D. 96968 G89.4 M35.7 D89.40 S60.410D Office Visit 08/20/2017 9:45a Sal Koenig M.D. 13620 Z00.01 N80.9 J30.81 F90.0 Z13.89 Z71.89 Office Visit 07/02/2017 9:00a Sal Paredes M.D. 20685 L50.0 N81.84 Office Visit 06/07/2017 3:30p Sal Koenig M.D. 82926 Z01.818 Office Visit 02/15/2017 12:00p Antoine Kae Koenig M.D. 69720 F90.0 N80.9 Office Visit 12/18/2016 2:30p Antoine Kae Koenig M.D. 69434 F90.0 H92.02 N94.6 Office Visit 09/21/2016 4:30p Antoine Kae Koenig M.D. 17475 F90.0 Office Visit 08/15/2016 11:30a [facility] Eddi Koenig M.D. 93839 Z00.129 N94.6 F32.9 F90.0 Office Visit 05/18/2016 9:00a Antoine Kae Koenig M.D. 28437 K59.00 F32.9 Office Visit 04/25/2016 8:30a [facility] ANKIT Nunez 97835 K59.00 R10.9 Office Visit 04/18/2016 5:45p Antoine Kae Koenig M.D. 93917 R10.9 Office Visit 04/10/2016 4:15p Antoine Kae Koenig M.D. 55398 F32.9 R10.9 Office Visit 03/06/2016 12:00p [facility] Eddi Koenig M.D. 05158 F32.9 H69.91 Office Visit 03/02/2016 9:45a [facility] [place] [address] J02.9 Office Visit 02/22/2016 9:30a [facility] Eddi Koenig M.D. 76238 F32.9 M54.9 Office Visit 01/31/2016 4:45p [facility] Eddi Koenig M.D. 14531 F32.9 M54.5 Office Visit 01/03/2016 4:45p Antoine Kae Koenig M.D. 98030 G51.0 F42 Office Visit 12/26/2015 4:30p [facility] Eddi Koenig M.D. 14684 G51.0 Office Visit 12/21/2015 9:[address]a [address] Eddi Koenig M.D. 74568 F42 J06.9 G52.9 Office Visit 11/29/2015 9:00a [facility] Eddi Koenig M.D. 66058 F42 Office Visit 11/12/2015 12:30p [facility] ANKIT Nunez 08424 R61 Office Visit 10/17/2015 10:45a [facility] Eddi Koneig M.D. 98025 J01.10 Office Visit 08/12/2015 9:45a [facility] Eddi Koenig M.D. 28325 R25.9 Office Visit 06/07/2015 3:00p Antoine Kae Koenig M.D. 95834 V20.2 v65.42 493.00 625.3 311 784.0 Office Visit 06/06/2015 10:30a [facility] Eddi Koenig M.D. 27489 784.0 Office Visit 05/16/2015 9:45a [facility] [address] 008.69 465.9 Office Visit 04/06/2015 10:15a [facility] Eddi Koenig M.D. 64584 786.2 477.0 493.00 296.80 Office Visit 12/21/2014 4:30p Antoine Kae Koenig M.D. 84516 845.19 Office Visit 12/10/2014 10:00a [facility] ANKIT Nunez 67067 719.47 V04.81 Office Visit 12/02/2014 9:30a [facility] [place] [address] 845.13 Office Visit 11/18/2014 12:00p Antoine Kae Paredes M.D. 80135 460 Office Visit 09/13/2014 4:00p [facility] Eddi Koenig M.D. 01646 300.00 724.5 524.60 Office Visit 08/23/2014 10:45a [facility] Eddi Koenig M.D. 69040 300.00 Office Visit 08/20/2014 8:45a [facility] [place] [address] 300.00 780.4 Office Visit 08/18/2014 1:30p [facility] Anegla Ravi M.D. 93927 300.00 Plan of Care Future Appointment(s):08/26/2018 10:30 am - [facility] - Uma Do MDH92.02 Otalgia, left earComments:Your exam today appears normal. IF pain is not improving, I would encourage that you call Dr. Rosas to get in for an appointment. I will talk to Dr. Koenig about the wheel chair request.J34.89 Other specified disorders of nose and nasal sinuses
[2018-07-05 15:56] VITALS: BP 122/75
--- NOTE | 2018-07-05 16:22 | UC ---
Ear Complaint HPI - HPI Summary HPI Summary: 17 yo female presents with LEFT ear pain for the past week. She tells me that earlier this week she was seen by her PCP for this and was told that her ear looked fine and to take zyrtec. Since that time her left ear has gotten significantly more painful and is radiating into her left jaw/throat. She has been taking tylenol with no relief. Denies fever, chills, decreased hearing, cough, SOB, headache, or dizziness. - History of Current Complaint Chief Complaint: UCEar Stated Complaint: L EAR PAIN Time Seen by Provider: 07/05/18 16:05 Hx Obtained From: Patient Hx Last Menstrual Period: pt has an IUD and states not getting a menses Severity Initially: Moderate Severity Currently: Severe Pain Intensity: 8 Pain Scale Used: 0-10 Numeric - Allergies/Home Medications Allergies/Adverse Reactions: Allergies Allergy/AdvReac Type Severity Reaction Status Date / Time acetaminophen [From Percocet] Allergy Rash Verified 07/05/18 15:58 amoxicillin Allergy Rash Verified 07/05/18 15:58 clonazepam [From Klonopin] Allergy Fatigue Verified 07/05/18 15:58 latex Allergy Rash Verified 07/05/18 15:58 naproxen Allergy Nausea Verified 07/05/18 15:58 oxycodone [From Percocet] Allergy Rash Verified 07/05/18 15:58 PMH/Surg Hx/FS Hx/Imm Hx - Additional Past Medical History Additional PMH: Chronic pain GI/ History: Gastroesophageal Reflux Psychological History: Anxiety, Depression - Surgical History Surgical History: Yes Surgery Procedure, Year, and Place: [place], endometriosis 06/11/17 in [facility] - Family History Known Family History: Positive: None Negative: Hypertension - Social History Occupation: Student Lives: Dormitory/Roommates Alcohol Use: None Substance Use Type: None Smoking Status (MU): Never Smoked Tobacco Have You Smoked in the Last Year: No - Immunization History Most Recent Influenza Vaccination: 2015 Vaccination Up to Date: Yes Review of Systems Constitutional: Negative Skin: Negative Eyes: Negative ENT: Ear Ache Respiratory: Negative Cardiovascular: Negative Neurovascular: Negative Neurological: Negative Psychological: Negative All Other Systems Reviewed And Are Negative: Yes Physical Exam - Summary Physical Exam Summary: GENERAL: NAD. WDWN. No pain distress. SKIN: No rashes, sores, lesions, or open wounds. HEENT: Head: AT/NC Eyes: EOM intact. Conjunctiva clear without inflammation or discharge. Ears: Hearing grossly normal. LEFT TM with mild erythema and bulging. Canal with moderate erythema. No canal edema or drainage. RIGHT EAR: WNL. TM intact. Nose: Nasal mucosa pink and moist. NTTP maxillary and frontal sinus. Throat: Posterior oropharynx without exudates, erythema, or tonsillar enlargement. Uvula midline. NECK: Supple. Nontender. No lymphadenopathy. CHEST: CTAB. No r/r/w. No accessory muscle use. Breathing comfortably and in no distress. CV: RRR. Without m/r/g. Pulses intact. NEURO: Alert. CN II-XII grossly intact. PSYCH: Age appropriate behavior. Triage Information Reviewed: Yes Vital Signs: Initial Vital Signs Temp 98.4 F 07/05/18 15:52 Pulse 81 07/05/18 15:52 Resp 18 07/05/18 15:52 BP 122/75 07/05/18 15:52 Pulse Ox 100 07/05/18 15:52 Vital Signs Reviewed: Yes Ear Complaint Course/Dx - Course Course Of Treatment: Left ear otitis media - Differential Dx/Diagnosis Provider Diagnoses: Left otitis media Discharge - Sign-Out/Discharge Documenting (check all that apply): Patient Departure All imaging exams completed and their final reports reviewed: No Studies - Discharge Plan Condition: Stable Disposition: HOME Prescriptions: Azithromycin TAB* [Zithromax TAB (Z-MELBA) 250 mg #6 tabs] 2 tab PO .TODAY, THEN 1 DAILY #1 melba Patient Education Materials: Ear Infection (ED) Referrals: Eddi Koenig MD [Primary Care Provider] - Additional Instructions: If you develop a fever, shortness of breath, chest pain, new or worsening symptoms - please call your PCP or go to the ED. - Billing Disposition and Condition Condition: STABLE Disposition: Home
== END 2018-07-05 16:38 | disposition home or self-care (01) ==
LOC: UCEAST 15:47
DX: H66.92 Otitis media, unspecified, left ear (principal); K21.9 Gastro-esophageal reflux disease without esophagitis
CPT/HCPCS: 99212; G0463

== ENCOUNTER 2020-01-04 23:28 | Emergency (ER) | payer BC ==
--- OUTSIDE RECORDS SUMMARY | 2020-01-04 23:38 | XMS REPORT | Continuity of Care Document ---
:1998 External Reference #:[id number] Author Name Ananda Bolton MD (transmitted by agent of provider Danay Rojas) Address [address] [place] [id number] Care Team Providers Name Role Phone Eddi Koenig MD - Pediatric Care Team Information Neurologist [phone] Infectious Diseases Melina Mckeon DO - Hospitalist Care Team Information Neurologist [phone] Problems Active Problems Provider Date Migraine without aura Nghia Preciado M.D. Onset: 11/09/2015 Social History Type Date Description Comments Sex Unknown ETOH Use Occasionally consumes alcohol Tobacco Use Start: Unknown Patient has never Not exposed to smoked second hand smoke Recreational Drug Use Denies Drug Use Tobacco Use Start: Unknown Patient has never smoked Smoking Status Reviewed: 12/03/19 Patient has never smoked Exercise Type/Frequency Exercises regularly walking the dog Allergies, Adverse Reactions, Alerts Active Allergies Reaction Severity Comments Date Amoxicillin 12/24/2014 Fludrocortisone Acetate Hives, Migraine, High Severe 07/31/2019 fever, High b/p Klonopin 12/24/2014 Midodrine Hives, High fever, Moderate 07/31/2019 High B/P Naproxen Syncope 09/16/2018 Amoxicillin Hives Moderate 07/31/2019 NSAIDS 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 mcg/Act Aerosol needed Rizatriptan Benzoate 1 by mouth twice 10tabs G43.009 Nghia ThaoCarlos Enrique 11/09/2015 10mg a day as needed Levon Preciado Tablets headache max 2 days a week Zyrtec 10MG 1 tablet twice a Unknown day Cyclobenzaprine HCL Dibartolo, 10mg Bette Rich, BIOMEDICAL MANAGER Tablets Albuterol Sulfate HFA Inhale 2 Puffs By Unknown Mouth Every 4 108(90Base) mcg/Act Hours as Needed Aerosol Atenolol Take 1/2 Tab By Unknown 25mg Tablets Mouth Every Day In The Morning For 3 Days Then 1 Tab In The Morning Montelukast Sodium Unknown 10mg Tablets Melodetta 24 Fe Take 1 Tablet By Unknown Mouth Daily. Skip 1-20mg-mcg(24) Placebo Pills And Chewtabs Continue Directly To The Next Pack. Tylenol 2 tablets every 4 Unknown 325mg Capsules hours as needed for pain Tramadol HCL 1 by mouth twice 60tabs Melina Mckeon, 50mg Tablets a day as needed DO for pain Alprazolam one by mouth up Unknown 0.25mg Tablets to three times daily as needed for anxiety Epinastine HCL 1 drop both eyes Unknown 0.05% twice daily Solution Flonase Allergy Relief spray 1 spray in Unknown each nostril 50mcg/Act Suspension daily Ranitidine HCL take one tablet Unknown 150mg by mouth twice a Tablets day Venlafaxine HCL 1 po bid Unknown 50mg Capsules Vitamin C 1 by mouth daily Unknown 250mg Chewtabs Vitamin B-Complex 1 by mouth every Unknown day Tablets Vitamin D-3 1 by mouth every Unknown 1000Unit day Capsules Lian-D 12 Hour as directed Unknown Allergy & Congestion Immunizations Description No Information Available Vital Signs Date Vital Result Comment 12/01/2019 1:53pm Height 65 inches 5'5" Weight 151.00 lb Heart Rate 76 /min BP Systolic 121 mmHg BP Diastolic 75 mmHg Body Temperature 99.4 F Pain Level 5 O2 % BldC Oximetry 98 % BMI (Body Mass Index) 25.1 kg/m2 11/09/2019 4:06pm Height 65 inches 5'5" Weight 147.50 lb Heart Rate 68 /min BP Systolic 107 mmHg BP Diastolic 67 mmHg Body Temperature 98.8 F O2 % BldC Oximetry 98 % BMI (Body Mass Index) 24.5 kg/m2 Results Test Acquired Date Facility Test Result H/L Range Note Nuclear AB 09/21/2019 [facility] Nuclear Ab Positive Abnormal 1 (Ayanna) By Ifa (Ayanna) by 1:[address] [place] [address] Ifa, IgG [phone] Ayanna Titer: 1:160 Ayanna Pattern: Speckled 2 Laboratory test finding 09/21/2019 [facility] Anti Ssa/Ro <0.2 U 3 [place] [address] [phone] Anti SSB LA <0.2 U 4 Thyroid Peroxidase Antibodies 1.06 IU/mL Normal <9 Thyroid 09/21/2019 [facility] Thyroglobulin 0.5 <4.0 Autoantibodies Antibody II IU/[place] [address] [phone] Laboratory test 09/21/2019 [facility] TSH (Thyroid 1.26 Normal 0.34-5. finding Stim Horm) mcIU/mL 60 [place] [address] [phone] Free T4 (Free Thyroxine) 0.95 ng/dL Normal 0.61-1.12 T3 Free 4.00 pg/mL High 2.5-3.9 Anti Double Stranded Dna AB 15.6 IU/mL 5 Erythrocyte Sed Rate 6 mm/Hr Normal 0-19 Rheumatoid Factor < 10 IU/mL Normal <15 C Reactive Protein 4.67 mg/L Normal <8.01 Celiac Panel 09/21/2019 [facility] Tissue Transglutaminase <1.2 U/mL 6 [place] [address] [phone] Immunoglobulin A 178 mg/dL 61 - 356 Celiac Interpretation See Comment 7 Laboratory test 09/21/2019 [facility] Vitamin B12 289 pg/mL Normal 180-914 8 finding [address] [place] [address] [phone] Vitamin B1 (Whole Blood) 151 nmol/L 70-180 9 Vitamin B6 09/21/2019 [facility] Pyridoxal 5-Phosphate 9 g/L 5-50 10 [place] [address] [phone] Pyridoxic Acid 5 g/L 3-30 11 Laboratory test 09/21/2019 [facility] Vitamin E 8.1 mg/L 5.5 - 17.0 12 finding [address] [place] [address] [phone] Vitamin D Total 25(Oh) 20.7 ng/mL Normal 20-50 13 Ferritin 44.4 ng/mL Normal 11-307 Copper, Serum 2.13 g/mL Abnormal 0.75-1.45 14 Magnesium 2.1 mg/dL Normal 1.9-2.7 Homocysteine 6 mcmol/L 15 Creatine Kinase(CK) 112 U/L Normal 10-223 Lactic Acid 1.0 mmol/L Normal 0.5-2.0 16 Cortisol 6.37 g/dL 17 1 REFERENCE VALUE <1:80 (Negative) 2 Test Performed by: [facility] [place] [address] Plastic Tubing Insulation Supervisor: Vasquez Woodson M.D. Ph.D.; CLIA# [id number] 3 REFERENCE VALUE <1.0 (Negative) Test Performed by: [facility] [place] [address] [employer] Ins[employer] Supervisor: Vasquez Woodson M.D. Ph.D.; CLIA# [id number] 4 REFERENCE VALUE <1.0 (Negative) Test Performed by: [facility] [place] [address] Pl[employer] Tubing Insulation Supervisor: Vasquez Woodson M.D. Ph.D.; CLIA# [id number] 5 REFERENCE VALUE <30.0 (Negative) Test Performed by: [facility] [place] [address] Pl[employer] Tubing Insulation Supervisor: Vasquez Woodson M.D. Ph.D.; CLIA# [id number] 6 REFERENCE VALUE <4.0 (Negative) Test Performed by: [facility] [place] [address] Pl[employer] Tubing Insulation Supervisor: Vasquez Woodson M.D. Ph.D.; CLIA# [id number] 7 Negative serology. Celiac disease unlikely. However, approximately 10% of patients with celiac disease are seronegative. Also, patients who are already adhering to a gluten-free diet may be seronegative. If celiac disease is highly clinically suspected, consider HLA-DQ typing. Test Performed by: [facility] [place] [address] [employer] Insulation Supervisor: Vasquez Woodson M.D. Ph.D.; CLIA# [id number] 8 Normal Range 180 to 914 Indeterminate Range 145 to 180 Deficient Range <145 9 ADDITIONAL INFORMATION This test was developed and its performance characteristics determined by [facility] in a manner consistent with CLIA requirements. This test has not been cleared or approved by the U.S. Food and Drug Administration. Test Performed by: [facility] [place] [address] Pl[employer] Tubing Insulation Supervisor: Vasquez Woodson M.D. Ph.D.; CLIA# [id number] 10 ADDITIONAL INFORMATION This test was developed and its performance characteristics determined by [facility] in a manner consistent with CLIA requirements. This test has not been cleared or approved by the U.S. Food and Drug Administration. 11 ADDITIONAL INFORMATION This test was developed and its performance characteristics determined by [facility] in a manner consistent with CLIA requirements. This test has not been cleared or approved by the U.S. Food and Drug Administration. Test Performed by: [facility] [place] [address] Plastic Tubing Insulation Supervisor: Vasquez Woodson M.D. Ph.D.; CLIA# [id number] 12 ADDITIONAL INFORMATION This test was developed and its performance characteristics determined by [facility] in a manner consistent with CLIA requirements. This test has not been cleared or approved by the U.S. Food and Drug Administration. Test Performed by: [facility] [place] [address] Plastic Tubing Insulation Supervisor: Vasquez Woodson M.D. Ph.D.; CLIA# [id number] 13 Total 25-Hydroxyvitamin D2 and D3 (25-OH-VitD) <10 ng/mL (severe deficiency) 10-19 ng/mL (mild to moderate deficiency) 20-50 ng/mL (optimum levels) 51-80 ng/mL (increased risk of hypercalciuria) >80 ng/mL (toxicity possible) 14 ADDITIONAL INFORMATION This test was developed and its performance characteristics determined by [facility] in a manner consistent with CLIA requirements. This test has not been cleared or approved by the U.S. Food and Drug Administration. Test Performed by: [facility] [address] [place] [address] Pl[employer] Tubing Insulation Supervisor: Vasquez Woodson M.D. Ph.D.; CLIA# [id number] 15 REFERENCE VALUE <=13 (Fasting) ADDITIONAL INFORMATION This test was developed and its performance characteristics determined by [facility] in a manner consistent with CLIA requirements. This test has not been cleared or approved by the U.S. Food and Drug Administration. Test Performed by: [facility] [place] [id number] [employer] Ins[employer] Supervisor: Vasquez Woodson M.D. Ph.D.; CLIA# [id number] 16 [facility] Severe Sepsis and Septic Shock Management Bundle Measure requires all lactic acids initially measuring >2.0 mmol/L be repeated. 17 AM 8.7-22.4 PM <10 Procedures Description No Information Available Medical Devices Description No Information Available Encounters Type Date Location Provider Dx Diagnosis Office Visit 11/09/2019 [facility] Melina Mckeon, G90.4 Autonomic 4:00p Medicine - Suite DO dysreflexia R G89.4 Chronic pain syndrome R11.0 Nausea M54.81 Occipital neuralgia Office Visit 07/31/2019 1:20p [facility] Melina G90.4 Autonomic Medicine - Suite DO Linda dysreflexia R G89.4 Chronic pain syndrome Z00.01 Encounter for general adult medical exam w abnormal findings Assessments Date Code Description Provider 12/03/2019 M79.7 Fibromyalgia Ananda Bolton MD 12/03/2019 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 Ananda Bolton MD 12/03/2019 M54.2 Cervicalgia Ananda Bolton MD 12/03/2019 M54.5 Low back pain Ananda Bolton MD 12/03/2019 R53.83 Other fatigue Ananda Bolton MD 11/09/2019 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 Melina Mckeon, DO 11/09/2019 G89.4 Chronic pain syndrome Melina Mckeon, DO 11/09/2019 R11.0 Nausea Melina Senner, DO 11/09/2019 M54.81 Occipital neuralgia Melina Hernandezner, DO 07/31/2019 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 Melina Hernandezner, DO 07/31/2019 G89.4 Chronic pain syndrome Melina Hernandezner, DO 07/31/2019 Z00.01 Encounter for general adult medical examination Melina Mckeon DO with abnormal findings Plan of Treatment Future Appointment(s):02/03/2020 3:00 pm - [facility] 2:00 pm - Melina Mckeon DO at [facility] Internal Medicine - Suite 12/03/2019 - Ananda Bolton, MDM79.7 FibromyalgiaFollow up:2- 3 gmxzsyX29.7 Hypermobility wxsvfctiC75.2 YwbyxcyypjcY45.5 Low back painR53.83 Other fatigueReferral:[facility] [facility]Diag/Clinic Functional Status Description No Information Available Mental Status Description No Information Available Referrals Refer to Reason for Referral Status Appt Date [facility] Patient with hypermobility and fatigue; please Created eval and treat for possible underlying KAYLA. [address] [place] [phone] Day Vallecillo MD Sent 12/09/2019 [address] [place] [address] [phone] Hoang Malave MD Sent [address], [place] [address] [phone] Mayi Klein FNP- Called referral office, no appt made 09/[address] [place] [address] [phone]
--- OUTSIDE RECORDS SUMMARY | 2020-01-04 23:38 | XMS REPORT | Continuity of Care Document ---
:1998 External Reference #:[id number] Author Name Melina Mckeon DO (transmitted by agent of provider Yolanda Hernandez) Address [address] [place] [phone] Care Team Providers Name Role Phone Eddi Koenig MD - Pediatric Care Team Information Press Tender [phone] Infectious Diseases Melina Mckeon DO - Hospitalist Care Team Information Press Tender [phone] Problems Active Problems Provider Date Migraine without aura Nghia Preciado M.D. Onset: 11/09/2015 Social History Type Date Description Comments Sex Unknown ETOH Use Occasionally consumes alcohol Tobacco Use Start: Unknown Patient has never Not exposed to smoked second hand smoke Recreational Drug Use Denies Drug Use Tobacco Use Start: Unknown Patient has never smoked Smoking Status Reviewed: 11/09/19 Patient has never smoked Exercise Type/Frequency Exercises [...] Methylphenidate take 1 tab by 30tabs F90.9 Melina Mckeon, 10/26/2019 Hydrochloride ER mouth daily DO 36mg Tablets ER Wheelchair dispense one 1units G89.4 Santosh Musa MD 07/31/2019 [facility] wheelchair Proair HFA 2 puffs by mouth 8.500gm Valentín Stockton, 09/16/2018 108(90Base) every 4 hours as M.D. mcg/Act Aerosol needed Rizatriptan Benzoate 1 by mouth twice 10tabs G43.009 Nghia Aguilar 11/09/2015 10mg a day as needed Levon Preciado Tablets headache max 2 days a week Zyrtec 10MG 1 tablet twice a Unknown day Cyclobenzaprine HCL Dibartolo, 10mg Bette JCarlos Enrique, LASER OPERATOR Tablets Albuterol Sulfate HFA Inhale 2 Puffs [...] Available Vital Signs Date Vital Result Comment 11/09/2019 4:06pm Height 65 inches 5'5" Weight 147.50 lb Heart Rate 68 /min BP Systolic 107 mmHg BP Diastolic 67 mmHg Body Temperature 98.8 F O2 % BldC Oximetry 98 % BMI (Body Mass Index) 24.5 kg/m2 07/31/2019 1:21pm Height 65 inches 5'5" Weight 144.12 lb With shoes Heart Rate 83 /min BP Systolic 119 mmHg BP Diastolic 78 mmHg Body Temperature 99.6 F O2 % BldC Oximetry 99 % BMI (Body Mass Index) 24.0 kg/m2 Results Test Acquired Date Facility Test Result H/L Range Note Nuclear AB 09/21/2019 [facility] Nuclear Ab Positive Abnormal 1 (Ayanna) By Ifa (Ayanna) by 1:[address] [place] [address] Ifa, IgG [phone] Ayanna Titer: 1:160 Ayanna Pattern: Speckled 2 Laboratory test finding 09/21/2019 [facility] Anti Ssa/Ro <0.2 U 3 [place] [address] [phone] Anti SSB LA <0.2 U 4 Thyroid Peroxidase Antibodies 1.06 IU/mL Normal <9 Thyroid 09/21/2019 [facility] Thyroglobulin 0.5 <4.0 Autoantibodies Antibody II IU/[place] [address] [phone] Laboratory test 09/21/2019 [facility] TSH (Thyroid 1.26 Normal 0.34-5. finding Stim Horm) mcIU/mL 60 [place] [address] [phone] Free T4 (Free Thyroxine) 0.95 ng/dL Normal 0.61-1.12 T3 Free 4.00 pg/mL High 2.5-3.9 Anti Double Stranded Dna AB 15.6 IU/mL 5 Erythrocyte Sed Rate 6 mm/Hr Normal 0-19 Rheumatoid Factor < 10 IU/mL Normal <15 C Reactive Protein 4.67 mg/L Normal <8.01 Celiac Panel 09/21/2019 [facility] Tissue Transglutaminase <1.2 U/mL 6 [place] [address] [phone] Immunoglobulin A 178 mg/dL 61 - 356 Celiac Interpretation See Comment 7 Laboratory test 09/21/2019 [facility] Vitamin B12 289 pg/mL Normal 180-914 8 finding [address] [place] [address] [phone] Vitamin B1 (Whole Blood) 151 nmol/L 70-180 9 Vitamin B6 09/21/2019 [facility] Pyridoxal 5-Phosphate 9 g/L 5-50 10 [place] [address] [phone] Pyridoxic Acid 5 g/L 3-30 11 Laboratory test 09/21/2019 [facility] Vitamin E 8.1 mg/L 5.5 - 17.0 12 finding [address] [place] [address] [phone] Vitamin D Total 25(Oh) 20.7 ng/mL Normal 20-50 13 Ferritin 44.4 ng/mL Normal 11-307 Copper, Serum 2.13 g/mL Abnormal 0.75-1.45 14 Magnesium 2.1 mg/dL Normal 1.9-2.7 Homocysteine 6 mcmol/L 15 Creatine Kinase(CK) 112 U/L Normal 10-223 Lactic Acid 1.0 mmol/L Normal 0.5-2.0 16 Cortisol 6.37 g/dL 17 1 REFERENCE VALUE <1:80 (Negative) 2 Test Performed by: [facility] [place] [address] Title I Math Tutor: Vasquez Woodson M.D. Ph.D.; CLIA# [id number] 3 REFERENCE VALUE <1.0 (Negative) Test Performed by: [facility] [place] [address] Title I Math Tutor: Vasquez Woodson M.D. Ph.D.; CLIA# [id number] 4 REFERENCE VALUE <1.0 (Negative) Test Performed by: [facility] [place] [address] Title I Math Tutor: Vasquez Woodson M.D. Ph.D.; CLIA# [id number] 5 REFERENCE VALUE <30.0 (Negative) Test Performed by: [facility] [place] [address] Title I Math Tutor: Vasquez Woodson M.D. Ph.D.; CLIA# [id number] 6 REFERENCE VALUE <4.0 (Negative) Test Performed by: [place] [address] Title I Math Tutor: Vasquez Woodson M.D. Ph.D.; CLIA# [id number] 7 Negative serology. Celiac disease unlikely. However, approximately 10% of patients with celiac disease are seronegative. Also, patients who are already adhering to a gluten-free diet may be seronegative. If celiac disease is highly clinically suspected, consider HLA-DQ typing. Test Performed by: [facility] [place] [address] Title I Math Tutor: Vasquez Woodson M.D. Ph.D.; CLIA# [id number] 8 Normal Range 180 to 914 Indeterminate Range 145 to 180 Deficient Range <145 9 ADDITIONAL INFORMATION This test was developed and its performance characteristics determined by [facility] in a manner consistent with CLIA requirements. This test has not been cleared or approved by the U.S. Food and Drug Administration. Test Performed by: [address] [place] [address] Title I Math Tutor: Vasquez Woodson M.D. Ph.D.; CLIA# [id number] 10 ADDITIONAL INFORMATION This test was developed and its performance characteristics determined by [facility] in a manner consistent with CLIA requirements. This test has not been cleared or approved by the U.S. Food and Drug Administration. 11 ADDITIONAL INFORMATION This test was developed and its performance characteristics determined by [facility] in a manner consistent with CLIA requirements. This test has not been cleared or approved by the U.S. Food and Drug Administration. Test Performed by: [facility] [employer] [place] [place] [address] Title I Math Tutor: Vasquez Woodson M.D. Ph.D.; CLIA# [id number] 12 ADDITIONAL INFORMATION This test was developed and its performance characteristics determined by [facility] in a manner consistent with CLIA requirements. This test has not been cleared or approved by the U.S. Food and Drug Administration. Test Performed by: [facility] [employer] [place] [address] Title I Math Tutor: Vasquez Woodson M.D. Ph.D.; CLIA# [id number] 13 Total 25-Hydroxyvitamin D2 and D3 (25-OH-VitD) <10 ng/mL (severe deficiency) 10-19 ng/mL (mild to moderate deficiency) 20-50 ng/mL (optimum levels) 51-80 ng/mL (increased risk of hypercalciuria) >80 ng/mL (toxicity possible) 14 ADDITIONAL INFORMATION This test was developed and its performance characteristics determined by [facility] in a manner consistent with CLIA requirements. This test has not been cleared or approved by the U.S. Food and Drug Administration. Test Performed by: [facility] [address] [place] [address] Title I Math Tutor: Vasquez Woodson M.D. Ph.D.; CLIA# [id number] 15 REFERENCE VALUE <=13 (Fasting) ADDITIONAL INFORMATION This test was developed and its performance characteristics determined by [facility] in a manner consistent with CLIA requirements. This test has not been cleared or approved by the U.S. Food and Drug Administration. Test Performed by: [facility] - [address] [address] Title I Math Tutor: Vasquez Woodson M.D. Ph.D.; CLIA# [id number] 16 [facility] Severe Sepsis and Septic Shock Management Bundle Measure requires all lactic acids initially measuring >2.0 mmol/L be repeated. 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 Melina Mckeon, DO 11/09/2019 G89.4 Chronic pain syndrome Melina Mckeon, DO 11/09/2019 R11.0 Nausea Melina Mckeon, DO 11/09/2019 M54.81 Occipital neuralgia Melina Mckeon, DO 07/31/2019 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 Melina Mckeon, DO 07/31/2019 G89.4 Chronic pain syndrome Melina Mckeon, DO 07/31/2019 Z00.01 Encounter for general adult medical examination Melina Mckeon DO with abnormal findings Plan of Treatment Future Appointment(s):02/08/2020 2:00 pm - Melina Mckeon DO at [facility] Internal Medicine - Suite 12/03/2019 2:00 pm - [facility] - Melina Mckeon, DOG90.4 Autonomic qrywlhrtxsgZ67.4 Chronic pain syndromeFollow up:3 plfcliC49.0 NauseaNew Xrays: NM Gastric Emptying Study, Ordered: 11/09/19M54.81 Occipital neuralgiaReferral: Day Vallecillo MD, Pain Management-anesthesi Functional Status Description No Information Available Mental Status Description No Information Available Referrals Refer to Reason for Referral Status Appt Date Day Vallecillo MD Created [address] [place], [place] [id number] [phone] Hoang Malave MD Sent [address], [address] [place], [place] [address] [phone] Mayi Klein FNP- Called referral office, no appt made 09/17 Sent [address] [place], [place] [address] [phone]
[2020-01-05 01:16] LABS: ABS Lymphocytes 2.8 10^3/ul (1.0-4.8); ABS Monocytes 0.4 10^3/ul (0-0.8); ABS Neutrophils 4.1 10^3/ul (1.5-7.7); Hematocrit 39 % (35-47); Hemoglobin 13.7 g/dL (12.0-16.0); Lymphocyte % 38.4 %; Mean Corpuscular HGB Conc 35 g/dL (31-36); Mean Corpuscular Hemoglobin 30 pg (27-31); Mean Corpuscular Volume 84 fL (80-97); Mean Platelet Volume 7.2 fL (7.4-10.4); Platelet Count 308 10^3/uL (150-450); Red Cell Distribution Width 12 % (10-15); White Blood Count 7.4 10^3/uL (3.5-10.8)
[2020-01-05 01:34] LABS: ALT 17 U/L (7-52); AST 16 U/L (13-39); Albumin 4.5 g/dL (3.2-5.2); Albumin/Globulin Ratio 1.5 (1-3); Alkaline Phosphatase 76 U/L (34-104); Anion Gap 7 mmol/L (2-11); BUN/Creatinine Ratio 14.9 (8-20); Blood Urea Nitrogen 11 mg/dL (6-24); C Reactive Protein 8.04 mg/L (<8.01); CO2 Carbon Dioxide 26 mmol/L (22-32); Chloride 103 mmol/L (101-111); EGFR African American 119.9 (>60); EGFR Non-African American 99.1 (>60); Glucose 87 mg/dL (70-100); Potassium 3.8 mmol/L (3.5-5.0); Sodium 136 mmol/L (135-145); Total Protein 7.5 g/dL (6.4-8.9)
[2020-01-05 01:40] LABS: HCG Pregnancy < 0.60 mIU/mL
[2020-01-05] MEDS ORDERED: Morphine 4 MG/ML VIAL (1 ml) 4 MG/ML VIAL IM ONE (02:54)
--- NOTE | 2020-01-05 03:05 | ED ---
GI/ HPI - HPI Summary HPI Summary: This pt is a 19 Y/O F presenting to [facility] with a CC of pelvic pain for the last 8 hours. She states that the pain is rated a 9/10 in severity. She states that she has a PMHx of endometriosis and ovarian cysts. She states that the pain is more located towards the RLQ. She has had intermittent fever-like symptoms since 01/03/2020. She denies any N/V, dysuria, hematuria, SOB, CP, headaches, and chills. She states that the pain is currently more intense than she is used to. She has a PMHx of endometriosis, appendectomy, EDS, and ovarian cysts. She has no aggravating or alleviating factors. - History of Current Complaint Chief Complaint: EDAbdPain Time Seen by Provider: 01/05/20 02:39 Stated Complaint: PELVIC PAIN PER PT Hx Obtained From: Patient Hx Last Menstrual Period: pt has an IUD and states not getting a menses Onset/Duration: Started Days Ago - 2, Still Present Timing: Constant, Lasting Days - 2 Severity: Severe Current Severity: Severe Pain Intensity: 9 Location of Pain: Other - pubic Associated Signs and Symptoms: Positive: Negative - SOB, headaches, and chills, Fever - intermittent. Negative: Nausea, Vomiting, Hematuria, Dysuria, Chills, Chest Pain - Allergy/Home Medications Allergies/Adverse Reactions: Allergies Allergy/AdvReac Type Severity Reaction Status Date / Time acetaminophen [From Percocet] Allergy Rash Verified 12/09/19 12:51 amoxicillin Allergy Rash Verified 12/09/19 12:51 clonazepam [From Klonopin] Allergy Fatigue Verified 12/09/19 12:51 latex Allergy Rash Verified 12/09/19 12:51 naproxen Allergy Nausea Verified 12/09/19 12:51 oxycodone [From Percocet] Allergy Rash Verified 12/09/19 12:51 peanut Allergy Anaphylatic Verified 01/04/20 23:31 Shock Home Medications: Home Medications Multivitamin 1 tab PO DAILY 06/10/15 [History Confirmed 01/05/20] ALPRAZolam TAB* [Xanax TAB*] 1 cap PO DAILY PRN 07/14/17 [History Confirmed ] Cetirizine* [ZyrTEC 10 MG TAB*] 1 cap PO BID 07/14/17 [History Confirmed ] Methylphenidate HCl [Concerta] 36 mg PO DAILY 07/14/17 [History Confirmed ] Venlafaxine TAB (NF) [Effexor TAB (NF)] 50 mg PO BID 07/14/17 [History Confirmed 01/05/20] Montelukast Sodium TAB* [Singulair 10 MG TAB*] 10 mg PO DAILY 10/13/17 [History Confirmed 01/05/20] Cyclobenzaprine TAB* [Flexeril 10 MG TAB*] 10 mg PO TID PRN #15 tab 12/27/18 [ Rx Confirmed 01/05/20] Levonorgestrel (Iud) [Mirena IUD] 20 mcg IU SEE INSTRUCTIONS 12/27/18 [History Confirmed 01/05/20] traMADol TAB* [Ultram*] 50 mg PO Q6HR PRN #16 tab MDD 4 12/27/18 [Rx Confirmed 01/05/20] Acetaminophen [Tylenol 8 Hour] 650 mg PO QID 12/09/19 [History Confirmed ] Calcium Carbonate CHEW TAB* [Tums*] 1,000 mg PO BID PRN 12/09/19 [History Confirmed 01/05/20] Norethindrone-E.estradiol-Iron [Melodetta 24 Fe Chewable Tab] 1 each PO DAILY [History Confirmed 01/05/20] Simethicone [Gas Relief] 180 mg PO DAILY PRN 12/09/19 [History Confirmed ] diphenhydrAMINE HCl [Benadryl Allergy 25 MG CAP] 25 mg PO SEE INSTRUCTIONS PRN 12/09/19 [History Confirmed 01/05/20] raNITIdine HCL [Ranitidine HCl] 150 mg PO BID 12/09/19 [History Confirmed ] Atenolol [Tenormin 25 MG] 25 mg PO DAILY 01/05/20 [History Confirmed 01/05/20] PMH/Surg Hx/FS Hx/Imm Hx Previously Healthy: Yes Endocrine/Hematology History: Denies: Hx Diabetes, Hx Systemic Lupus Erythematosus, Hx Thyroid Disease Cardiovascular History: Reports: Hx Hypertension Denies: Hx Congestive Heart Failure, Hx Pacemaker/ICD Respiratory History: Reports: Hx Asthma Denies: Hx Chronic Obstructive Pulmonary Disease (COPD) GI History: Reports: Hx Gastroesophageal Reflux Disease Denies: Hx Ulcer History: Denies: Hx Dialysis, Hx Renal Disease Musculoskeletal History: Reports: Hx Back Problems, Other Musculoskeletal History - Chronic Neck Pain; Sinai-Danlos Syndrome Denies: Hx Rheumatoid Arthritis, Hx Osteoporosis Sensory History: Denies: Hx Hearing Aid Neurological History: Reports: Hx Migraine Psychiatric History: Reports: Hx Anxiety, Hx Depression Denies: Hx Panic Disorder - Cancer History Hx Chemotherapy: No Hx Radiation Therapy: No - Surgical History Surgical History: Yes Surgery Procedure, Year, and Place: [place], endometriosis 06/11/17 in [facility] - Immunization History Immunizations Up to Date: Yes Infectious Disease History: No Infectious Disease History: Denies: Hx Hepatitis, Hx Human Immunodeficiency Virus (HIV), Traveled Outside the [place] in Last 30 Days - Family History Known Family History: Negative: Hypertension - Social History Occupation: Student Lives: With Family Alcohol Use: None Hx Substance Use: No Substance Use Type: Reports: None Hx Tobacco Use: No Smoking Status (MU): Never Smoked Tobacco Have You Smoked in the Last Year: No Review of Systems Negative: Fever, Chills Negative: Chest Pain Negative: Shortness Of Breath Negative: Vomiting, Nausea Genitourinary: Other - pelvic pain Negative: dysuria, hematuria Negative: Headache All Other Systems Reviewed And Are Negative: Yes Physical Exam - Summary Physical Exam Summary: Constitutional: Well-developed, Well-nourished, Alert. (-) Distressed Skin: Warm, Dry HENT: Normocephalic; Atraumatic Eyes: Conjunctiva normal Neck: Musculoskeletal ROM normal neck. (-) JVD, (-) Stridor, (-) Tracheal deviation Cardio: Rhythm regular, rate normal, Heart sounds normal; Intact distal pulses; The pedal pulses are 2+ and symmetric. Radial pulses are 2+ and symmetric. Pulmonary/Chest wall: Effort normal. (-) Respiratory distress, (-) Wheezes, (-) Rales Abd: Soft, (-) tenderness, (-) Distension, (-) Guarding, (-) Rebound, Localizing pain to the lower quadrants but is not tender Musculoskeletal: (-) Edema Neuro: Alert, Oriented x3 Psych: Mood and affect Normal Triage Information Reviewed: Yes Vital Signs On Initial Exam: Initial Vitals Temp Pulse Resp BP Pulse Ox 99.4 F 107 17 133/90 98 01/04/20 23:30 01/04/20 23:30 01/04/20 23:30 01/04/20 23:30 01/04/20 23:30 Vital Signs Reviewed: Yes Procedures - Sedation Patient Received Moderate/Deep Sedation with Procedure: No Diagnostics - Vital Signs Vital Signs Temp Pulse Resp BP Pulse Ox 01/05/20 02:59 18 01/05/20 02:26 88 121/75 98 01/05/20 02:23 92 99 01/05/20 01:56 86 121/78 98 01/04/20 23:30 99.4 F 107 17 133/90 98 - Laboratory Lab Results: Lab Results 01/05/20 01/05/20 Range/Units 01:08 01:08 WBC 7.4 (3.5-10.8) 10^3/uL RBC 4.60 (3.70-4.87) 10^6 /uL Hgb 13.7 (12.0-16.0) g/dL Hct 39 (35-47) % MCV 84 (80-97) fL MCH 30 (27-31) pg MCHC 35 (31-36) g/dL RDW 12 (10-15) % Plt Count 308 (150-450) 10^3/uL MPV 7.2 L (7.4-10.4) fL Neut % (Auto) 55.7 % Lymph % (Auto) 38.4 % Hayes % (Auto) 5.8 % Eos % (Auto) 0.0 % Baso % (Auto) 0.1 % Absolute Neuts (auto) 4.1 (1.5-7.7) 10^3/ul Absolute Lymphs (auto) 2.8 (1.0-4.8) 10^3/ul Absolute Monos (auto) 0.4 (0-0.8) 10^3/ul Absolute Eos (auto) 0.0 (0-0.6) 10^3/ul Absolute Basos (auto) 0.0 (0-0.2) 10^3/ul Absolute Nucleated RBC 0.0 10^3/ul Nucleated RBC % 0.0 Sodium 136 (135-145) mmol/L Potassium 3.8 (3.5-5.0) mmol/L Chloride 103 (101-111) mmol/L Carbon Dioxide 26 (22-32) mmol/L Anion Gap 7 (2-11) mmol/L BUN 11 (6-24) mg/dL Creatinine 0.74 (0.51-0.95) mg/dL Est GFR ( Amer) 119.9 (>60) Est GFR (Non-Af Amer) 99.1 (>60) BUN/Creatinine Ratio 14.9 (8-20) Glucose 87 (70-100) mg/dL Calcium 9.0 (8.6-10.3) mg/dL Total Bilirubin 0.30 (0.2-1.0) mg/dL AST 16 (13-39) U/L ALT 17 (7-52) U/L Alkaline Phosphatase 76 (34-104) U/L C-Reactive Protein 8.04 H (<8.01) mg/L Total Protein 7.5 (6.4-8.9) g/dL Albumin 4.5 (3.2-5.2) g/dL Globulin 3.0 (2-4) g/dL Albumin/Globulin Ratio 1.5 (1-3) Lipase 13 (11.0-82.0) U/L Beta HCG, Quant < 0.60 mIU/mL Result Diagrams: 01/05/20 01:08 01/05/20 01:08 Lab Statement: Any lab studies that have been ordered have been reviewed, and results considered in the medical decision making process. - Ultrasound Transvaginal US Ultrasound Interpretation Completed By: Radiologist Summary of Ultrasound Findings: 1. There is a small volume of free fluid in the posterior pelvic cul-de-sac,. cannot exclude ovarian cyst rupture. 2. No visible ovarian cysts but the left ovary was obscured by bowel gas. ED physician has reviewed this report. GIGU Course/Dx - Course Course Of Treatment: This pt is a 19 Y/O F presenting to [facility] with a CC of pelvic pain for the last 8 hours. She states that the pain is rated a 9/10 in severity. She states that she has a PMHx of endometriosis and ovarian cysts. She states that the pain is more located towards the RLQ. Her PE found that she was localizing pain to the lower quadrants but is not tender. Her transvaginal US found 1. There is a small volume of free fluid in the posterior pelvic cul-de-sac,. cannot exclude ovarian cyst rupture. 2. No visible ovarian cysts but the left ovary was obscured by bowel gas. The pt was given morphine for her pain during her ED course. She states that she is feeling much better and will be discharged home with a Dx of a ruptured ovarian cyst. - Diagnoses Provider Diagnoses: Ruptured ovarian cyst Discharge ED - Sign-Out/Discharge Documenting (check all that apply): Patient Departure - discharge - Discharge Plan Condition: Good Disposition: HOME Patient Education Materials: Ruptured Ovarian Cyst (ED) Referrals: Melina Mckeon DO [Primary Care Provider] - 2 Days Additional Instructions: PLEASE FOLLOW UP WITH YOUR PRIMARY CARE PROVIDER IN 1-3 DAYS AND RETURN TO THE EMERGENCY DEPARTMENT FOR ANY NEW OR WORSENING SYMPTOMS. - Billing Disposition and Condition Condition: GOOD Disposition: Home - Attestation Statements Document Initiated by Parth: Yes Documenting Scribe: Broderick Hill Provider For Whom Parth is Documenting (Include Credential): Rajendra Culver MD Scribe Attestation: Broderick Pierce, scribed for Rajendra Culver MD on 01/05/20 at 0447. Scribe Documentation Reviewed: Yes Provider Attestation: The documentation as recorded by the Broderick laboy accurately reflects the service I personally performed and the decisions made by me, Rajendra Culver MD Status of Scribe Document: Viewed
[2020-01-05 03:50] VITALS: BP 115/66
== END 2020-01-05 03:50 | disposition home or self-care (01) ==
LOC: ED 23:28
DX: N83.201 Unspecified ovarian cyst, right side (principal); R10.2 Pelvic and perineal pain; F41.9 Anxiety disorder, unspecified; F32.9 Major depressive disorder, single episode, unspecified; K21.9 Gastro-esophageal reflux disease without esophagitis; I10 Essential (primary) hypertension
CPT/HCPCS: 36415; 76830; 80053; 83690; 84702; 85025; 86140; 96372; 99282; J2270